=== PATIENT | male | born 1990 | race African-American/Black ===

== ENCOUNTER 2020-06-26 13:49 | Emergency (ER) | payer MEDICAID, SELFPAY ==
--- NOTE | ~2020-06-26 | XR_ITS ---
EXAMINATION: XR chest 2V DATE: 06/26/2020 16:50 INDICATION: Cough. Dizziness. TECHNIQUE: Frontal and lateral views of the chest were obtained. COMPARISON: Chest 2 views 07/14/2016 FINDINGS: The chest demonstrates clear lungs without pneumonia, pleural effusion, or pneumothorax. Th e heart size is normal. IMPRESSION: 1. No acute cardiopulmonary disease. Reviewed, dictated and finalized at location A.
[2020-06-26 14:06] VITALS: BP 133/88; PULSE 71; RESP 16; TEMP 36.4; O2SAT 100
--- NOTE | 2020-06-26 14:09 | ECG_ITS ---
Measurements Intervals [place] Rate: 71 P: 49 [place]: 198 QRS: 34 QRSD: 95 T: 32 QT: 374 QTc: 409 Interpretive Statements SINUS RHYTHM NONSPECIFIC ST ELEVATION IN DIFFUSE LEADS BASELINE ARTIFACT- I, II, III, AVR, AVL BORDERLINE ECG Electronically Signed On 06-26-2020 14:38:05 CDT by Esteban Edgar D.O.
[2020-06-26 14:35] LABS: Basophils Percent Auto 0.2 % (0.2-1.2); Eosinophils Percent Auto 0.4 % (0-4.4); Hematocrit 44.9 % (42.0-52.0); Hemoglobin 14.7 g/dL (14.0-18.0); Immature Granulocyte Absolute 0.02 K/mm3 (0.00-0.031); Immature Granulocyte Percent A 0.4 % (0-0.5); Lymphocytes Absolute Auto 1.22 K/mm3 (0.9-3.2); Lymphocytes Percent Auto 22.8 % (18.3-44.2); Mean Corpuscular HGB Conc 32.7 g/dl (32-36); Mean Corpuscular Hemoglobin 30.8 pg (26-34); Mean Corpuscular Volume 94.1 fl (80-100); Mean Platelet Volume 10.2 fl (7.4-10.4); Monocytes Absolute Auto 0.3 K/mm3 (0.1-0.6); Monocytes Percent Auto 4.9 % (2.6-8.5); Neutrophils Absolute Auto 3.8 K/mm3 (1.3-6.7); Neutrophils Percent Auto 71.3 % (45.5-73.1); Platelet Count Result 255 k/mm3 (150-375); Red Blood Count 4.77 M/mm3 (4.6-6.20); White Blood Count 5.4 K/mm3 (4.5-10.0)
[2020-06-26 14:43] LABS: Anion Gap 8 mmol/L (8-16); Blood Urea Nitrogen 9 mg/dL (9-20); Calcium 9.2 mg/dL (8.4-10.2); Carbon Dioxide 28 mmol/L (22-30); Chloride 104 mmol/L (98-107); Estimated CRCL calculation 121 ml/min; Estimated Glomerular Filt Rate > 60; Glucose 96 mg/dL (75-110); Potassium 4.1 mmol/L (3.4-5.0); Sodium 140 mmol/L (137-145)
--- NOTE | 2020-06-26 17:29 | ED.GENADULT ---
HPI - General Adult General Chief complaint: Dizziness <Estephania Lawrence PA-C - Last Filed: 06/26/20 20:46> Stated complaint: dizzy, lightheaded <Estephania Lawrence PA-C - Last Filed: 06/26/20 20:46> Time Seen by Provider: 06/26/20 16:05 <Estephania Lawrence PA-C - Last Filed: 06/26/20 20:46> Source: patient <OZIEL Kamara Last Filed: 06/26/20 20:46> Mode of arrival: ambulatory <OZIEL Kamara Last Filed: 06/26/20 20:46> Limitations: no limitations <OZIEL Kamara Last Filed: 06/26/20 20:46> History of Present Illness HPI narrative: Patient presents with chief complaint of feelings of dizziness upon standing that began last night. Patient states that he noticed it when he got off of work so he went home and went to sleep. Patient states he also noticed dizziness upon standing this morning. Patient reports that he felt as if the room was moving around him. Patient denies any flashes or floaters are photophobia. Patient denies any other changes to his vision. Patient denies any tenderness or changes to his hearing. Patient reports he has had a occasional dry cough over the past 2 to 3 weeks but denies any other signs of illness such as fever, chills, vomiting, diarrhea, abdominal pain, productive cough, loss of taste of smell, body aches or chills. Patient states he feels as if he continues to drink more fluids so he has been trying to drink Powerade. Patient denies any health issues. Patient states he does not have any chronic medical conditions. <Estephania Lawrence PA-C - Last Filed: 06/26/20 20:46> Related Data Home medications: Home Medications Medication Instructions Recorded Confirmed No Home Medications 06/26/20 06/26/20 <OZIEL Kamara Last Filed: 06/26/20 20:46> Allergies/adverse reactions: Allergies Allergy/AdvReac Type Severity Reaction Status Date / Time No Known Allergies Allergy Verified 06/26/20 16:21 <Estephania Lawrence PA-C - Last Filed: 06/26/20 20:46> Review of Systems Review of Systems: Narrative: CONSTITUTIONAL: Denies fever, chills, or sweats. EYES: Denies visual changes, redness, or discharge. ENT: Denies rhinorrhea, congestion, sore throat, or otalgia. CARDIOVASCULAR: Denies chest pain, palpitations, or edema. RESPIRATORY: Reports occasional dry cough denies dyspnea. GASTROINTESTINAL: Denies abdominal pain, nausea, vomiting, or diarrhea. GENITOURINARY: Denies dysuria or hematuria. SKIN: Denies rash or itching. MUSCULOSKELETAL: Denies back pain, myalgia, or joint pain NEUROLOGIC: Reports a few episodes of mild dizziness with standing denies headache, numbness, or weakness. PSYCHIATRIC: Denies anxiety or depression. <Estephania Lawrence PA-C - Last Filed: 06/26/20 20:46> [facility] Social History Social History: Social History Gender identity (if verbalized by the patient): Male <Estephania Lawrence PA-C - Last Filed: 06/26/20 20:46> Exam Narrative: Exam Narrative: GENERAL: Well-appearing, well-nourished. Patient does not appear to be in any discomfort or distress. HEAD: Normocephalic, atraumatic. EYES: PERRLA and EOMI. ENT: Nares clear, no rhinorrhea or epistaxis. Mucous membranes moist. Oropharynx without tonsillar hypertrophy exudate or other lesions. Bilateral TMs pearly ochoa nonbulging. No hemotympanum NECK: Supple. No adenopathy or masses. No vertebral tenderness or loss of ROM. CHEST: Clear to auscultation. No respiratory distress. No wheezes rales or rhonchi. Patient speaks in complete sentences without tachypnea or gasping. HEART: Regular rate and rhythm. Normal peripheral pulses. EXTREMITIES: No acute changes in ROM. No edema. SKIN: Warm, dry, no rash. NEURO: No focal deficits. Alert and oriented x3. Gait steady PSYCH: Normal mood and affect. <Estephania Lawrence PA-C - Last Filed: 06/26/20 20:46> Course Vital Signs Vital signs: Vital Signs Temperature 36.4 C 06/26/20 14:06
[2020-06-26 17:34] VITALS: BP 123/84; BP 138/99; PULSE 70; PULSE 74; PULSE 79
[2020-06-26] MEDS: SODIUM CHLORIDE 0.9% IV 1,000 ML 999 ML IV CONT (17:44)
[2020-06-26 18:28] LABS: Add Urine Microscopic? YES; Appearance Urine Clear (Clear); Bacteria Urine Trace /hpf; Bilirubin Urine Negative (Negative); Blood Urine Negative (Negative); Color Urine Yellow (Yellow); Glucose Urine UA Negative (Negative); Ketones Urine Negative (Negative); Leukocyte Esterase Ur Trace LEU/UL (Negative); Mucus Urine Few /lpf; Nitrate Urine Negative (Negative); Protein Urine 1+ mg/dL (Negative); RBC Urine 0-2 /hpf (0-2); Specific Grav Ur 1.023 (1.001-1.035); Squamous Epithelial Cell Urine Moderate /hpf (Few)
[2020-06-26 18:59] LABS: Amphetamine Screen Urine Negative (Negative); Barbiturate Screen Urine Negative (Negative); Benzodiazepines Screen Urine Negative (Negative); Cannabinoid Screen Urine Negative (Negative); Cocaine Screen Urine Negative (Negative); Methadone Screen Urine Negative (Negative); Opiate Screen Urine Negative (Negative); Phencyclidine Screen Urine Negative (Negative)
[2020-06-26 19:16] VITALS: BP 127/89; PULSE 71; RESP 18; TEMP 36.6; O2SAT 99
== END 2020-06-26 19:45 | disposition home or self-care (01) ==
PROVIDERS: Emergency Medicine; Physician Assistant; Emergency Provider Emergency Medicine
DX: H81.10 Benign paroxysmal vertigo, unspecified ear (principal)
CPT/HCPCS: 36415; 71046; 80048; 80307; 81001; 85025; 93005; 96360; 96361; 99284; J7030